=== PATIENT | female | born 1990 | race Caucasian/White ===

== ENCOUNTER 2016-10-12 16:34 | Emergency (ER) | payer SELFPAY ==
--- NOTE | 2016-10-12 17:06 | ER Document Report ---
ED Medical Screen (RME) - General Stated Complaint: VAGINAL PAIN, PAINFUL URINATION Time seen by provider: 17:04 Mode of Arrival: Ambulatory Information source: Patient Notes: 46-year-old female was having vaginal intercourse with her boyfriends friend something popped during the penetration and she developed pain and vaginal bleeding since. Patient has history of PCOS TRAVEL OUTSIDE OF THE [place] IN LAST 30 DAYS: No - Related Data Allergies/Adverse Reactions: No Known Drug Allergies Allergy (Verified 12/16/13 19:38) Past Medical History Pulmonary Medical History: Reports: Hx Asthma, Hx Pneumonia - Immunizations Hx Diphtheria, Pertussis, Tetanus Vaccination: No Physical Exam - Vital signs Vitals: Temp Pulse Resp BP Pulse Ox 98.1 F 120 H 16 135/85 H 96 10/12/16 16:42 10/12/16 16:42 10/12/16 16:42 10/12/16 16:42 10/12/16 16:42 Course - Vital Signs Vital signs: Temp Pulse Resp BP Pulse Ox 98.1 F 120 H 16 135/85 H 96 10/12/16 16:42 10/12/16 16:42 10/12/16 16:42 10/12/16 16:42 10/12/16 16:42
--- NOTE | 2016-10-12 17:49 | ER Document Report ---
HPI - HPI Patient complains to provider of: vaginal pain, bleeding Onset: Just prior to arrival Onset/Duration: Sudden Quality of pain: Sharp Pain Level: 4 Context: Patient states she was having intercourse and felt a sudden pop and then had vaginal bleeding. Patient denies any urinary symptoms. Patient complains of vaginal pain. Associated Symptoms: Other - Vaginal pain Exacerbated by: Denies Relieved by: Denies Similar symptoms previously: No Recently seen / treated by doctor: No - ROS ROS below otherwise negative: Yes Systems Reviewed and Negative: Yes All other systems reviewed and negative - CONSTITUTIONAL Constitutional: DENIES: Fever, Chills - NEURO Neurology: DENIES: Headache, Weakness - GASTROINTESTINAL Gastrointestinal: DENIES: Nausea, Patient vomiting - URINARY Urinary: DENIES: Dysuria - REPRODUCTIVE LMP: 10/09/16 Reproductive: DENIES: : Notes: Vaginal pain - MUSCULOSKELETAL Musculoskeletal: DENIES: Extremity pain, Back Pain - DERM Skin Color: Normal, Holt Skin Problems: None Past Medical History - General Information source: Patient Last Menstrual Period: 10/09/2016 - Social History Smoking Status: Never Smoker Occupation: none Lives with: Spouse/Significant other Family History: Reviewed & Not Pertinent Patient has suicidal ideation: No Patient has homicidal ideation: No Pulmonary Medical History: Reports: Hx Asthma, Hx Pneumonia Renal/ Medical History: Reports: Hx Ovarian Cysts Psychiatric Medical History: Reports: Hx Bipolar Disorder Surgical Hx: Negative - Immunizations Hx Diphtheria, Pertussis, Tetanus Vaccination: No Vertical Provider Document - CONSTITUTIONAL Agree With Documented VS: No - apical heart rate 100 bpm Exam Limitations: No Limitations General Appearance: WD/WN, No Apparent Distress Notes: PHYSICAL EXAMINATION: GENERAL: Well-appearing and in no acute distress. HEAD: Atraumatic, normocephalic. EYES: sclera anicteric, conjunctiva are normal. ENT: nares patent. Moist mucous membranes. NECK: Normal range of motion, supple without lymphadenopathy LUNGS: CTAB and equal. No wheezes rales or rhonchi. HEART: Regular rate and rhythm without murmurs ABDOMEN: Soft, suprapubic tenderness, normal bowel sounds, no guarding. EXTREMITIES: Normal range of motion, no pitting edema. No cyanosis. BACK: No midline tenderness, no step-off or deformity. No CVA tenderness NEUROLOGICAL: Cranial nerves grossly intact. Normal speech. Normal gait. PSYCH: Normal mood, normal affect. SKIN: Warm, Dry, normal turgor, no rashes or lesions noted - INFECTION CONTROL TRAVEL OUTSIDE OF THE [place] IN LAST 30 DAYS: No - RESPIRATORY O2 Sat by Pulse Oximetry: 96 - REPRODUCTIVE Female Genitalia: CMT, Adnexal Pain-Left Notes: Patient with vaginal discharge. Patient with pain during pelvic examination with insertion of speculum. Patient with left adnexal tenderness on examination. No vaginal bleeding appreciated Course - Vital Signs Vital signs: Temp Pulse Resp BP Pulse Ox 98.1 F 120 H 16 135/85 H 96 10/12/16 16:42 10/12/16 16:42 10/12/16 16:42 10/12/16 16:42 10/12/16 16:42 - Laboratory Result Diagrams: 10/12/16 18:18 Laboratory results interpreted by me: 10/12/16 22:01 Labs- Entire Visit 10/12/16 10/12/16 10/12/16 17:15 18:18 19:32 WBC 20.7 H RBC 5.02 Hgb 14.0 Hct 41.6 MCV 83 MCH 27.9 MCHC 33.6 RDW 14.0 Plt Count 462 H Total Counted 100 Seg Neutrophils % Not Reportable Seg Neuts % (Manual) 70 Lymphocytes % Not Reportable Lymphocytes % (Manual) 22 Monocytes % Not Reportable Monocytes % (Manual) 7 Eosinophils % Not Reportable Eosinophils % (Manual) 1 Basophils % Not Reportable Basophils % (Manual) 0 Absolute Neutrophils Not Reportable Abs Neuts (Manual) 14.5 H Absolute Lymphocytes Not Reportable Abs Lymphs (Manual) 4.6 Absolute Monocytes Not Reportable Abs Monocytes (Manual) 1.4 Absolute Eosinophils Not Reportable Absolute Eos (Manual) 0.2 Absolute Basophils Not Reportable Abs Basophils (Manual) 0.0 Toxic Granulation SLIGHT Platelet Comment INCREASED Anisocytosis SLIGHT Serum HCG, Qual NEGATIVE Urine Color Urine Appearance Urine pH Ur Specific [place] Urine Protein Urine Glucose (UA) Urine Ketones Urine Blood Urine Nitrite Urine Bilirubin Urine Urobilinogen Ur Leukocyte Esterase Urine WBC (Auto) Urine RBC (Auto) Squamous Epi Cells Auto Urine Mucus (Auto) Urine Ascorbic Acid Epi Cells (Wet Prep) Bacteria (Wet Prep) Trichomonas (Wet Prep) Vaginal WBC Vaginal Yeast Chlamydia DNA (PCR) NOT DETECTED N.gonorrhoeae DNA (PCR) NOT DETECTED 10/12/16 10/12/16 19:32 20:30 WBC RBC Hgb Hct MCV MCH MCHC RDW Plt Count Total Counted Seg Neutrophils % Seg Neuts % (Manual) Lymphocytes % Lymphocytes % (Manual) Monocytes % Monocytes % (Manual) Eosinophils % Eosinophils % (Manual) Basophils % Basophils % (Manual) Absolute Neutrophils Abs Neuts (Manual) Absolute Lymphocytes Abs Lymphs (Manual) Absolute Monocytes Abs Monocytes (Manual) Absolute Eosinophils Absolute Eos (Manual) Absolute Basophils Abs Basophils (Manual) Toxic Granulation Platelet Comment Anisocytosis Serum HCG, Qual Urine Color YELLOW Urine Appearance SLIGHTLY-CLOUDY Urine pH 5.0 Ur Specific [place] 1.019 Urine Protein NEGATIVE Urine Glucose (UA) NEGATIVE Urine Ketones NEGATIVE Urine Blood MODERATE H Urine Nitrite NEGATIVE Urine Bilirubin NEGATIVE Urine Urobilinogen NEGATIVE Ur Leukocyte Esterase MODERATE H Urine WBC (Auto) 38 Urine RBC (Auto) 16 Squamous Epi Cells Auto 1 Urine Mucus (Auto) RARE Urine Ascorbic Acid NEGATIVE Epi Cells (Wet Prep) 3+ EPITHELIALS SEEN Bacteria (Wet Prep) 3+ BACTERIA SEEN Trichomonas (Wet Prep) TRICHOMONAS SEEN Vaginal WBC 3+ WBCS SEEN Vaginal Yeast NO YEAST SEEN Chlamydia DNA (PCR) N.gonorrhoeae DNA (PCR) - Diagnostic Test Radiology reviewed: Reports reviewed Discharge - Discharge Clinical Impression: PID (acute pelvic inflammatory disease), Trichomoniasis UTI (urinary tract infection) Qualifiers: Urinary tract infection type: site unspecified Hematuria presence: with hematuria Qualified Code(s): N39.0 - Urinary tract infection, site not specified Condition: Stable Disposition: HOME, SELF-CARE Instructions: Urinary Tract Infection ([facility]), Pelvic Inflammatory Disease ([facility]) , Trichomonas Infection ([facility]), Metronidazole ([facility]), Rocephin ([facility]), Doxycycline ([facility]) Additional Instructions: Return immediately for any new or worsening symptoms Followup with your primary care provider, call tomorrow to make a followup appointment Have your partner seek treatment for trichomonas infection Prescriptions: Doxycycline Hyclate 100 mg PO BID #28 capsule Oxycodone HCl/Acetaminophen [Percocet 5-325 mg Tablet] 1 tab PO ASDIR PRN #10 tablet PRN Reason: Referrals: [facility] [Provider Group] - Follow up as needed [facility] [[facility]] - Follow up as needed
[2016-10-12 18:31] LABS: HEMATOCRIT 41.6 % (36.0-47.0); HGB HCT DIFFERENCE 0.4; MEAN CORPUSCULAR HEMOGLOBIN 27.9 pg (27.0-33.4); MEAN CORPUSCULAR HGB CONC 33.6 g/dL (32.0-36.0); MEAN CORPUSCULAR VOLUME 83 fl (80-97); RED BLOOD COUNT 5.02 10^6/uL (3.72-5.28); WHITE BLOOD COUNT 20.7 10^3/uL (4.0-10.5)
[2016-10-12 18:49] LABS: BASOPHILS % (MANUAL) 0 % (0-2); EOSINOPHILS % (MANUAL) 1 % (0-6); LYMPHOCYTES % (MANUAL) 22 % (13-45); TOTAL CELLS COUNTED 100
[2016-10-12 18:51] LABS: ANISOCYTOSIS SLIGHT; TOXIC GRANULATION SLIGHT
[2016-10-12] MEDS ORDERED: OXYCODONE-ACETAMINOPHEN 5-325 MG TABLET PO ONE (19:33)
[2016-10-12 21:06] LABS: CHLAM PCR NOT DETECTED (NOT DETECT)
[2016-10-12 21:08] LABS: APPEARANCE,URINE SLIGHTLY-CLOUDY; BILIRUBIN,URINE NEGATIVE (NEGATIVE); GLUCOSE, URINE NEGATIVE (NEGATIVE); KETONES,URINE NEGATIVE (NEGATIVE); LEUKOCYTE ESTERASE,URINE MODERATE (NEGATIVE); NITRITE,URINE NEGATIVE (NEGATIVE); PROTEIN,URINE NEGATIVE (NEGATIVE); URINE SPECIFIC GRAVITY 1.019; UROBILINOGEN,URINE NEGATIVE mg/dL (<2.0)
[2016-10-12] MEDS ORDERED: METRONIDAZOLE 500 MG TABLET PO ONE (21:19)
[2016-10-12] MEDS ORDERED: DOXYCYCLINE HYCLATE 100 MG TABLET PO ONE (21:20)
[2016-10-12] MEDS ORDERED: LIDOCAINE 1% INJ-PF (10 MG/ML) 30 ML SDV INJ ONE (21:20)
[2016-10-12] MEDS ORDERED: CEFTRIAXONE INJ 1000 MG VIAL IM ONE (21:20)
[2016-10-12 22:28] VITALS: BP 131/82
== END 2016-10-12 22:30 | disposition home or self-care (01) ==
LOC: ER 16:34
DX: N73.0 Acute parametritis and pelvic cellulitis (principal); A59.9 Trichomoniasis, unspecified; N39.0 Urinary tract infection, site not specified; R31.9 Hematuria, unspecified; R10.2 Pelvic and perineal pain; J45.909 Unspecified asthma, uncomplicated; Z87.42 Personal history of other diseases of the female genital tract
CPT/HCPCS: 99284; 96372; 36415; 87086; 87210; 84703; 85025; 87088; 81001; 87491; 87591; 76830; 93976; J3490; J0696

== ENCOUNTER 2016-12-07 04:30 | Emergency (ER) | payer SELFPAY ==
--- NOTE | 2016-12-07 05:50 | ER Document Report ---
ED General - General Chief Complaint: Vaginal Pain Stated Complaint: VAGINAL PAIN Mode of Arrival: Ambulatory Information source: Patient Notes: Patient presents to the emergency department with complaints of vaginal discharge, pain with discharge and pain with sex. Patient reports she was treated for trichomonas approximately one month ago. She did not finish the treatment. She reports she is still having symptoms. She reports she is having sex but using condoms. She denies other symptoms such as fever vomiting diarrhea. Patient reports last menstrual period was in October and she may be . TRAVEL OUTSIDE OF THE [place] IN LAST 30 DAYS: No - HPI Onset: Other Quality of pain: Achy Severity: Severe Pain Level: 4 Associated symptoms: None Exacerbated by: Other - sex Relieved by: Denies Similar symptoms previously: Yes Recently seen / treated by doctor: Yes - Related Data Allergies/Adverse Reactions: No Known Drug Allergies Allergy (Verified 12/07/16 04:33) Past Medical History - General Information source: Patient Last Menstrual Period: 10/25/16 - Social History Smoking Status: Current Every Day Smoker Cigarette use (# per day): Yes - 1ppd Chew tobacco use (# tins/day): No Frequency of alcohol use: None Drug Abuse: None Family History: Reviewed & Not Pertinent Patient has suicidal ideation: No Patient has homicidal ideation: No Pulmonary Medical History: Reports: Hx Asthma, Hx Pneumonia Renal/ Medical History: Reports: Hx Ovarian Cysts. Denies: Hx Peritoneal Dialysis Skin Medical History: Reports Hx Cellulitis Psychiatric Medical History: Reports: Hx Bipolar Disorder - Immunizations Hx Diphtheria, Pertussis, Tetanus Vaccination: No Review of Systems - Review of Systems Notes: Review HPI for review of systems., All other systems negative Physical Exam - Vital signs Vitals: Temp Pulse Resp BP Pulse Ox 97.5 F 108 H 16 137/77 H 96 12/07/16 04:35 12/07/16 04:35 12/07/16 04:35 12/07/16 04:35 12/07/16 04:35 - Notes Notes: PHYSICAL EXAMINATION: GENERAL: Well-appearing and in no acute distress HEAD: Atraumatic, normocephalic. EYES: Pupils equal round and reactive to light, extraocular movements intact, sclera anicteric, conjunctiva are normal. ENT: nares patent, oropharynx clear without exudates. Moist mucous membranes. NECK: Normal range of motion, supple without lymphadenopathy LUNGS: CTAB and equal. No wheezes rales or rhonchi. HEART: Regular rate and rhythm without murmurs ABDOMEN: Soft, no tenderness. No guarding, no rebound EXTREMITIES: Normal range of motion, no pitting edema. No cyanosis. NEUROLOGICAL: Cranial nerves grossly intact. Normal sensory/motor exams. PSYCH: Normal mood, normal affect. SKIN: Warm, Dry, normal turgor, no rashes or lesions noted, small pinprick opening in gluteal fold, no induration, no erythema,no swelling - Genitourinary External exam: Normal Speculum exam: Vaginal discharge Vaginal bleeding: None Bimanuel exam: Normal Course - Re-evaluation Re-evalutation: 12/07/16 06:38 Patient instructed on all results. Patient requests to be treated for GC chlamydia. Patient also instructed to follow up with health department for recheck, use protection. She verbalized understanding.. - Vital Signs Vital signs: Temp Pulse Resp BP Pulse Ox 97.5 F 108 H 16 137/77 H 96 12/07/16 04:35 12/07/16 04:35 12/07/16 04:35 12/07/16 04:35 12/07/16 04:35 - Laboratory Laboratory results interpreted by me: 12/07/16 05:45 Urine Protein 100 H Urine Blood SMALL H Ur Leukocyte Esterase LARGE H Procedures - Pelvic Exam Pelvic exam Cultures obtained: Yes Wet prep obtained: Yes Herpes culture obtained: No POC sent to lab: No Foreign body removed: No Bimanual exam performed: Yes Witnessed by: serenity MCGEEcloth napping supervisor - Discharge Clinical Impression: Vaginal discharge, Vaginal pain, Bacterial vaginosis, trichomonas, Elevated blood pressure reading UTI (urinary tract infection) Qualifiers: Urinary tract infection type: site unspecified Hematuria presence: with hematuria Qualified Code(s): N39.0 - Urinary tract infection, site not specified ; R31.9 - Hematuria, unspecified Condition: Stable Disposition: HOME, SELF-CARE Instructions: Metronidazole ([facility]), [facility] [place] Trichomonas Infection ([facility]), Vaginosis, Bacterial ([facility]), Trimethoprim-Sulfa ([facility] ), Rocephin ([facility]), Azithromycin ([facility]), Gonorrhea ([facility]), Chlamydia ([facility]) Additional Instructions: *You have been evaluated for vaginal discharge, pain with void, trichomonas, bacterial vaginosis, high blood pressure reading. *You have been treated for suspected gonorrhea and chlamydia. For all culture results contact the culture nurse at [phone] *Take medication as prescribed *Follow up with your [employer] or the health department for recheck *Avoid sexual intercourse until follow up *Monitor your blood pressure. Your blood pressure was elevated today. This may be because you were anxious, in pain or because you need medication. It is important to follow up with your primary care provider for full evaluation. *Return to ED for worsening condition, changes, needs Prescriptions: Metronidazole [Flagyl 500 mg Tablet] 500 mg PO BID #14 tablet Sulfamethoxazole/Trimethoprim [Bactrim Ds Tablet] 1 each PO BID #10 tablet Forms: Elevated Blood Pressure
[2016-12-07 06:27] LABS: APPEARANCE,URINE CLOUDY; BILIRUBIN,URINE NEGATIVE (NEGATIVE); GLUCOSE, URINE NEGATIVE (NEGATIVE); KETONES,URINE NEGATIVE (NEGATIVE); LEUKOCYTE ESTERASE,URINE LARGE (NEGATIVE); NITRITE,URINE NEGATIVE (NEGATIVE); PROTEIN,URINE 100 mg/dL (NEGATIVE); UROBILINOGEN,URINE NEGATIVE mg/dL (<2.0)
[2016-12-07] MEDS ORDERED: AZITHROMYCIN 1 GM SUSP PACKET PO ONE (06:37)
[2016-12-07] MEDS ORDERED: CEFTRIAXONE INJ 250 MG VIAL IM ONE (06:37)
[2016-12-07] MEDS ORDERED: LIDOCAINE 1% INJ-PF (10 MG/ML) 30 ML SDV INFIL ONE (06:37)
[2016-12-07] MEDS ORDERED: METRONIDAZOLE 500 MG TABLET PO ONE (06:37)
[2016-12-07] MEDS ORDERED: SULFAMETHOXAZOLE/TRIMETHOPRIM 800-160 MG TABLET PO ONE (06:37)
[2016-12-07 07:19] VITALS: BP 135/75
[2016-12-07 07:38] LABS: CHLAM PCR NOT DETECTED (NOT DETECT)
== END 2016-12-07 07:17 | disposition home or self-care (01) ==
LOC: ER 04:30
DX: N76.0 Acute vaginitis (principal); A59.9 Trichomoniasis, unspecified; R03.0 Elevated blood-pressure reading, without diagnosis of hypertension; N39.0 Urinary tract infection, site not specified; N89.8 Other specified noninflammatory disorders of vagina; R10.2 Pelvic and perineal pain
CPT/HCPCS: 99283; 96372; 87210; 81025; 81001; 87491; 87591; Q0144; J0696

== ENCOUNTER 2017-02-22 19:53 | Emergency (ER) | payer SELFPAY ==
[2017-02-22] MEDS ORDERED: CLINDAMYCIN HCL 150 MG CAPSULE PO ONE (22:32)
[2017-02-22] MEDS ORDERED: IBUPROFEN 600 MG TABLET PO ONE (22:32)
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
[2017-02-22 22:38] VITALS: BP 140/84
== END 2017-02-22 22:45 | disposition home or self-care (01) ==
LOC: ER 19:53
DX: R22.0 Localized swelling, mass and lump, head (principal); R51 Headache; K08.89 Other specified disorders of teeth and supporting structures; X58.XXXA Exposure to other specified factors, initial encounter; J45.909 Unspecified asthma, uncomplicated
CPT/HCPCS: 99283